=== PATIENT | female | born 1960 | race African-American/Black ===

== ENCOUNTER 2023-12-13 11:24 | Emergency (ER) | payer MEDICARE, MEDICAID ==
[~2023-12-13] VITALS: Ht 165.1 cm; Wt 106.0 kg
[2023-12-13 11:25] VITALS: O2SAT 99
[2023-12-13 13:45] LABS: BG BASE EXCESS -0.1 mmol/L (-2.0-2.0); BG CARBOXYHEMOGLOBIN 0.2 % (0.5-1.5); BG DEOXYHEMOGLOBIN 3.8 % (0.0-5.0); BG FRACTION INSPIRED OXYGEN 21; BG HCO3 ACT 23.9 mmol/L (22.0-26.0); BG METHEMOGLOBIN 0.2 % (0.0-1.5); BG OXYGEN SATURATION 96.2 % (92.0-98.5); BG OXYHEMOGLOBIN 95.8 % (94.0-97.0); BG PH 7.428 (7.350-7.450); BG PO2 86.5 mmHg (75.0-100.0); BG SAMPLE SITE RIGHT RADIAL; BG TOTAL HEMOGLOBIN 15.1 g/dL (12.0-18.0); BG VENT MODE ROOM AIR
[2023-12-13 16:49] VITALS: BP 136/82; PULSE 68; RESP 14; TEMP 98.7
== END 2023-12-13 17:03 | disposition home or self-care (01) ==
LOC: ER 11:44
DX: T59.811A Toxic effect of smoke, accidental (unintentional), initial encounter (principal); I10 Essential (primary) hypertension; J44.9 Chronic obstructive pulmonary disease, unspecified; Y92.9 Unspecified place or not applicable
CPT/HCPCS: 36600; 71045; 82375; 82805; 93005; 99284